=== PATIENT | female | born 1975 ===

== ENCOUNTER 2021-05-09 12:56 | Outpatient (CLI) | payer OTHER, SELFPAY ==
[2021-05-09] MEDS: Albuterol HFA 18 GM 200 PUFF INH IH (13:56)
[2021-05-09] MEDS: Inhaler, Assist Device 1 EACH MC (13:56)
--- NOTE | 2021-05-09 14:35 | W.PFT ---
Date of service: 05/09/21 Time of Service: 13:07 Pulmonary Function Test Result Requesting Provider Petey Smith Indications: [facility] disability Interpretation Spirometry: There is no airflow limitation. There is no significant bronchodilator response Impression Normal spirometry Clinical Correlation therefore is recommended.
== END 2021-05-09 12:57 | disposition home or self-care (01) ==
LOC: RT 05-12 12:57
PROVIDERS: Visit Provider Chiropractor
DX: Z02.71 Encounter for disability determination (principal)
CPT/HCPCS: 94060

== ENCOUNTER 2022-10-05 15:07 | Emergency (ER) | payer OTHER, SELFPAY ==
[2022-10-05 15:11] VITALS: BP 102/62; PULSE 78; RESP 20; TEMP 36.9; O2SAT 97
--- NOTE | 2022-10-05 15:40 | DI.RAD_ITS ---
Exam(s) XR FOREARM LT EXAM: XR FOREARM LT CLINICAL HISTORY: pain s/p fall. TECHNIQUE: 2D digital imaging was performed of the left forearm. Two views were obtained. AP and l ateral views were obtained. COMPARISON: No exams were available for comparison FINDINGS: BONES: There is a question of a lucency in the lateral aspect of the triquetral bone on the AP view o f the forearm. No other acute fracture or dislocation is seen. No bony destructive lesion is seen. Visualized portion of elbow and wrist joints are unremarkable. SOFT TISSUE: Normal. IMPRESSION: 1. Question of a lucency in the lateral aspect of the triquetral bone on the AP view of the forearm. Please correlate with patient's site of pain as a nondisplaced fracture cannot be excluded in this a carlton. A dedicated wrist x-ray should be considered for further evaluation. 2. No acute fracture or dislocation seen in the forearm. 3. Findings were discussed with Dr. Obrien at 8:49 a.m. on 10/06/2022. DATA REPOSITORY: RADIATION DOSE DELIVERED:
--- NOTE | 2022-10-05 15:40 | DI.RAD_ITS ---
Exam(s) XR FEMUR LT EXAM: XR FEMUR LT CLINICAL HISTORY: pain s/p fall. TECHNIQUE: 2D digital imaging was performed of the left femur. Four images were obtained. AP and lat eral views were obtained. COMPARISON: No exams were available for comparison FINDINGS: BONES: No acute fracture is present. No bony destructive lesion is seen. Visualized portion of knee a nd hip joints are unremarkable. SOFT TISSUE: Normal. IMPRESSION: Unremarkable radiographs of the left femur. DATA REPOSITORY: RADIATION DOSE DELIVERED:
--- NOTE | 2022-10-05 15:40 | DI.RAD_ITS ---
Exam(s) XR SHOULDER LT COMPLETE 2+V EXAM: XR SHOULDER LT COMPLETE 2+V CLINICAL HISTORY: pain s/p fall. TECHNIQUE: 2D digital imaging was performed of the left shoulder. Five images were obtained. AP, G rashey, Y-view and axillary views were obtained. COMPARISON: No exams were available for comparison FINDINGS: BONES: No acute fracture is present. No bony destructive lesion is seen. JOINTS: There is mild inferior subluxation of the humeral head relative to the glenoid. The acromioc lavicular joint is unremarkable. SOFT TISSUE: Normal. IMPRESSION: Mild inferior subluxation of the humeral head without anterior posterior subluxation. This may refle ct ligamentous injury, of uncertain chronicity. Please correlate clinically. DATA REPOSITORY: RADIATION DOSE DELIVERED:
--- NOTE | 2022-10-05 15:40 | DI.RAD_ITS ---
Exam(s) XR HUMERUS LT EXAM: XR HUMERUS LT CLINICAL HISTORY: pain. TECHNIQUE: 2D digital imaging was performed of the left humerus. Two images were obtained. AP and lateral views were obtained. COMPARISON: No exams were available for comparison FINDINGS: BONES: No acute fracture is present. No bony destructive lesion is seen. Visualized portion of elbow and shoulder joints are unremarkable. SOFT TISSUE: Normal. IMPRESSION: Unremarkable radiographs of the left humerus. DATA REPOSITORY: RADIATION DOSE DELIVERED:
--- NOTE | 2022-10-05 15:40 | DI.RAD_ITS ---
Exam(s) XR CHEST 2V PA LATERAL EXAM: XR CHEST 2V PA LATERAL CLINICAL HISTORY: left sided pain s/p fall TECHNIQUE: 2D digital imaging was performed of the chest. Two images were obtained. PA and lateral views were obtained. COMPARISON: No exams were available for comparison FINDINGS: MEDIASTINUM: Normal. HEART: Normal. PULMONARY VASCULATURE: Normal. LUNGS: Clear. PLEURAL SPACE: No pleural effusion or pneumothorax. BONE:Within normal limits for the patient's age. OTHER FINDINGS:Normal. IMPRESSION: No acute pulmonary findings. DATA REPOSITORY: RADIATION DOSE DELIVERED:
--- NOTE | 2022-10-05 15:49 | ED.GENADUL_ITS ---
Discharge Plan Disposition Patient Disposition: Home Condition: Stable Discharge Details Chief Complaint: Orthopedic Clinical Impression: Contusion of left chest wall, Contusion of arm, left, Contusion of left shoulder, Contusion of left leg Primary Care Provider: GREG DAMON ED Provider: Pola Rodriguez Home Meds and New Rx's Prescriptions: No Action No Known Home Meds Discharge Instructions Instructions: Contusion in Adults (ED) Additional Instructions: if pain continues in a week follow up with your primary care provider if you feel more ill, have severe worsening pain or new symptoms such as severe abdominal pain return to the emergency department Medical Decision Making 47 yo female with hx of fibromyalgia comes in with left arm, leg and left sided chest tenderness after a fall Wednesday evening. She says Wednesday she was walking upstairs, tripped and hit her left side on the wall. Denies loc or other trauma, since has had pain in the left arm, leg and left sided of her chest. She has no headaches, n/v, abdominal pain, back pain. She arrives ambulatory caox4 in no distress. No signs of trauma to the head, perrl, no midline c/t/l spine tenderness. She has tenderness to the left anterior shoulder, left mid humerus, none to the elbow, and left forearm, no wrist or hand tenderness, full rom of the hand, wrist, elbow and shoulder, intact pulses and sensation. Has no visible or palpable deformity of the chest but is tender in the mid axillary line on the left over ribs 4-5. No abdominal tenderness. Her left mid femur is tender without visible or palpable deformity otherwise no tendernress elsewhere in the leg, full rom of the ankle, knee and hip. Suspect sprains and contusions, will obtain xrays of the left shoulder, humerus, forearm, chest xray, and left femur xray and reassess. patient stable, imaging on my reads shows no acute findings. Pt feels well enough for d/c and doesn't want to wait for vrad reads, will call her if any abnormal acute results. Advised to f/u with pcp, return precautions given Differential Diagnosis Differential Diagnosis: fracture contusion sprain Imaging Data Radiologic Study: Attestation: I personally reviewed and interpreted this imaging study as follows: Imaging: X-Ray My impression: no acute findings cxr Radiologic Study #2: Attestation: I personally reviewed and interpreted this imaging study as follows: Imaging: X-Ray My impression: no acute findings shoulder xray Radiologic Study #3: Attestation: I personally reviewed and interpreted this imaging study as follows: Imaging: X-Ray My impression: no acute findings forearm xray Radiologic Study #4: Attestation: I personally reviewed and interpreted this imaging study as follows: Imaging: X-Ray My impression: no acute findings on humerus xray Radiologic Study #5: Attestation: I personally reviewed and interpreted this imaging study as follows: Imaging: X-Ray My impression: no acute findings left femur xray HPI General Mode of arrival: ambulatory . Date/Time Provider Initiated Documentation: 10/05/22 15:15 . Limitations to Documentation: no limitations . Information obtained by: patient . History of Present Illness 47 year old F presents to the emergency department with the chief complaint of left arm pain, described as moderate, Quality is described as aching, and it has been constant. No relieving factors improve symptom(s), No exacerbating factors reported . Patient notes denies shortness of breath. Patient did receive the following treatments prior to arrival, none Related Data Home Medications Medication Instructions Recorded Confirmed Unknown [No Known Home Meds] 10/05/22 10/05/22 Allergies Allergy/AdvReac Type Severity Reaction Status Date / Time codeine Allergy Anaphylaxis Unverified 10/05/22 15:17 epinephrine Allergy Other (See Unverified 10/05/22 15:16 Comment) lidocaine Allergy Other (See Unverified 10/05/22 15:17 Comment) General Stated Complaint: Orthopedic MARIANELA: 3 Review of Systems All systems reviewed & are unremarkable except as noted in HPI and below Constitutional Constitutional: Denies chills, Denies fever(s) and Denies weakness Cardiovascular Cardiovascular: Denies dyspnea Respiratory Respiratory: Denies cough and Denies dyspnea Gastrointestinal Gastrointestinal: Denies abdominal pain, Denies nausea and Denies vomiting Musculoskeletal Musculoskeletal: Denies joint swelling Neurologic Neurologic: Denies weakness PFSH All Active Problems (Updated 10/05/22 @ 18:33 by Pola Rodriguez MD) Contusion of left chest wall (Acute) Contusion of arm, left (Acute) Contusion of left shoulder (Acute) Contusion of left leg (Acute) Social History Smoking/Tobacco Use Status: Never Smoking risk assessment performed?: Yes Alcohol Intake: never Do you feel safe at home: Yes Do you feel safe in your relationship?: Yes Exam Const General: no acute distress Orientation: alert HENMT Head: normal to inspection Ears: external ears normal General nose exam: external nose normal Mouth: moist mucous membranes Eyes General: appearance normal, both eyes and all related structures Neck Neck: normal visual inspection and nontender Chest Chest: normal inspection of the chest Resp Effort & Inspection: normal respiratory effort and able to speak in complete sentences Cardio Rate: regular rate GI Palpation: soft and nontender Skin General skin exam: no rashes or lesions noted Neuro General: patient alert and patient oriented x3 Extrem General: normal to inspection Psych Mental Status: mental status grossly normal Course Vital Signs Vital signs: Vital Signs Temperature 36.9 C 10/05/22 15:11 Pulse 78 10/05/22 15:11 Respiratory Rate 20 10/05/22 15:11 Blood Pressure 102/62 10/05/22 15:11 Pulse Oximetry 97 10/05/22 15:11 Temperature 36.9 C 10/05/22 15:11 Temperature Source Oral 10/05/22 15:11 Pulse 78 10/05/22 15:11 Respiratory Rate 20 10/05/22 15:11 Respiratory Effort Normal, Non-Labored 10/05/22 15:19 Blood Pressure 102/62 10/05/22 15:11 Blood Pressure Position Sitting 10/05/22 15:11 Pulse Oximetry 97 10/05/22 15:11 Oxygen Delivery Method Room Air 10/05/22 15:11 Oxygen Flow Rate 0 10/05/22 15:11 Pain Level 6 10/05/22 15:11
[2022-10-05] MEDS: Ibuprofen 600 MG TAB PO (16:00)
--- NOTE | 2022-10-05 18:48 | DI.VRAD_ITS ---
PROCEDURE INFORMATION: Exam: XR Left Forearm Exam date and time: 10/05/2022 4:59 PM Age: 47 years old Clinical indication: Lower or forearm; Left; Patient HX: Pain S/P fall TECHNIQUE: Imaging protocol: Radiologic exam of the left forearm. Views: 2 views. COMPARISON: No relevant prior studies available. FINDINGS: Bones/joints: There are no acute displaced fractures or subluxations. The joint spaces are maintained without degenerative changes. Osseous mineralization is normal. There are no inflammatory osseous erosive changes. No focal osseous lesions are identified. Soft tissues: Normal. IMPRESSION: No acute displaced fractures or subluxations identified. Dictated and Authenticated by: Srikanth Worthy MD. Ordering:ROSALIO Escalona MD
--- NOTE | 2022-10-05 18:49 | DI.VRAD_ITS ---
PROCEDURE INFORMATION: Exam: XR Left Femur Exam date and time: 10/05/2022 5:21 PM Age: 47 years old Clinical indication: Lower leg and thigh; Left; Patient HX: Pain s/p/fall TECHNIQUE: Imaging protocol: Radiologic exam of the left femur. Views: 2 views. COMPARISON: No relevant prior studies available. FINDINGS: Bones/joints: Osseous mineralization is normal. There are no inflammatory osseous erosive changes. The joint spaces are maintained without degenerative changes. The left femoral head demonstrates normal contour and density. There are no acute displaced fractures or subluxations. No focal osseous lesions are identified. Soft tissues: Unremarkable. IMPRESSION: No acute displaced fractures or subluxations identified. Dictated and Authenticated by: Srikanth Worthy MD. Ordering:ROSALIO Escalona MD
--- NOTE | 2022-10-05 18:49 | DI.VRAD_ITS ---
PROCEDURE INFORMATION: Exam: XR Left Humerus Exam date and time: 10/05/2022 5:08 PM Age: 47 years old Clinical indication: Lower or forearm and upper arm; Left; Patient HX: Pain S/P fall TECHNIQUE: Imaging protocol: Radiologic exam of the left humerus. Views: 2 or more views. COMPARISON: CR XR CHEST 2V PA LATERAL 10/05/2022 5:06 PM FINDINGS: Bones/joints: There are no acute displaced fractures or subluxations. The joint spaces are maintained without degenerative changes. Osseous mineralization is normal. There are no inflammatory osseous erosive changes. Soft tissues: Normal. IMPRESSION: No acute displaced fractures or subluxations identified. Dictated and Authenticated by: Srikanth Worthy MD. Ordering:ROSALIO Escalona MD
--- NOTE | 2022-10-05 18:50 | DI.VRAD_ITS ---
PROCEDURE INFORMATION: Exam: XR Chest Exam date and time: 10/05/2022 5:06 PM Age: 47 years old Clinical indication: Other: Pain S/P fall TECHNIQUE: Imaging protocol: Radiologic exam of the chest. Views: 2 views. COMPARISON: No relevant prior studies available. FINDINGS: Lungs: The lungs are clear. There is no pulmonary vascular congestion. Pleural spaces: There are no pleural effusions present. There is no evidence of pneumothorax. Heart/Mediastinum: The cardiomediastinal silhouette is within normal limits. Bones/joints: There is mild to moderate S-shaped lower thoracic and lumbar scoliosis, only partially imaged on this exam. No acute fractures are identified. IMPRESSION: No active cardiopulmonary disease identified. Dictated and Authenticated by: Srikanth Worthy MD. Ordering:ROSALIO Escalona MD
--- NOTE | 2022-10-05 18:50 | DI.VRAD_ITS ---
PROCEDURE INFORMATION: Exam: XR Left Shoulder Exam date and time: 10/05/2022 5:11 PM Age: 47 years old Clinical indication: Shoulder; Left; Patient HX: Pain S/P fall TECHNIQUE: Imaging protocol: Radiologic exam of the left shoulder. Views: 2 or more views. COMPARISON: CR XR HUMERUS LT 10/05/2022 5:08 PM FINDINGS: Bones/joints: There is mild inferior subluxation of the humeral head relative to the glenoid. No anterior or posterior subluxation of the glenohumeral joint is identified. No acute displaced fractures are identified. The joint spaces are maintained without degenerative changes. Osseous mineralization is normal. There are no inflammatory osseous erosive changes. No focal osseous lesions are identified. Soft tissues: Normal. IMPRESSION: 1. No acute fractures identified. 2. Mild inferior subluxation of the humeral head without anterior or posterior subluxation at the glenohumeral joint. Findings could reflect history of ligamentous injury, of uncertain chronicity. Recommend clinical correlation. Dictated and Authenticated by: Srikanth Worthy MD. Ordering:ROSALIO Escalona MD
== END 2022-10-05 18:37 | disposition home or self-care (01) ==
PROVIDERS: Emergency Provider Emergency Medicine; PCP Internal Medicine
DX: S20.213A Contusion of bilateral front wall of thorax, initial encounter; S40.012A Contusion of left shoulder, initial encounter; S40.022A Contusion of left upper arm, initial encounter; S80.12XA Contusion of left lower leg, initial encounter; W10.9XXA Fall (on) (from) unspecified stairs and steps, initial encounter
CPT/HCPCS: 73552; 99284; 71046; 73030; 73060; 73090

== ENCOUNTER 2022-12-30 13:04 | Emergency (ER) | payer BC, SELFPAY ==
[2022-12-30 13:09] VITALS: BP 115/65; PULSE 74; RESP 20; O2SAT 99
--- NOTE | 2022-12-30 13:40 | NUR.NOTE ---
Nursing Note: Pt refusing urine test ordered prior to xray, states, I had a hysterectomy. There's no chance. CHELSEA Freire notified and advised to go ahead w/ xray.
--- NOTE | 2022-12-30 14:00 | DI.RAD_ITS ---
Exam(s) XR KNEE RT 4V AP,LAT,JESSY,PAT EXAM: XR KNEE RT 4V AP,LAT,JESSY,PAT CLINICAL HISTORY: Fall,. TECHNIQUE: 2D digital imaging was performed. Three views. COMPARISON: No exams were available for comparison FINDINGS: BONES: No acute fracture is present. No bony destructive lesion is seen. JOINTS: The knee is normally aligned. No joint effusion is seen. SOFT TISSUE: Normal. IMPRESSION: Unremarkable radiographs of the right knee. DATA REPOSITORY: RADIATION DOSE DELIVERED:
--- NOTE | 2022-12-30 14:28 | W.ED.GENAD ---
Discharge Plan Disposition Patient Disposition: Home Discharge Details Clinical Impression: Sprain of unspecified site of right knee, initial encounter Primary Care Provider: GREG DAMON ED Provider: Mouna Chen Home Meds and New Rx's Prescriptions: No Action Vitamin C 100 mg Tablet 100 mg PO DAILY vitamin B complex Capsule 1 cap PO DAILY cholecalciferol (vitamin D3) [Vitamin D3] 10 mcg (400 unit) Capsule 10 mcg PO DAILY Discharge Instructions Instructions: Knee Sprain (ED) Additional Instructions: Wear the knee brace as needed for comfort. Rest, ice, compression, elevation when sitting or lying down. Please follow-up with orthopedics for further evaluation and discussion. X-rays today show no acute abnormality. Please take Tylenol or Ibuprofen with food every 4-6 hours as needed for pain and swelling. Follow up with primary care provider in 3-5 days if needed. Return to ED sooner if any worsening or concerns. Increase oral fluids. Referrals: Jaxson Hidalgo MD [ [facility] STAFF PHYSICIAN] - 1 week Discharge Data Discharge Date/Time-TO BE ENTERED AT DEPARTURE: 12/30/22 15:02 Medical Decision Making 47-year-old female presents to the ER with a chief complaint of right knee pain status post a trip and fall approximately 3 weeks ago when she landed onto her knee. She did have an abrasion which she reports she thought was infected. It is healing does have a scab and some surrounding soft tissue swelling. She reports with kneeling and certain movements she does have some excruciating sharp pain that radiates down into her ankle. She does have lateral joint tenderness with palpation and anterior tibia tenderness with palpation. X-ray negative for anything acute see radiology report below, will place patient in hinged knee brace and given referral for orthopedics for any continued pain. Patient verbalized understanding is in agreement with the plan. This text was generated using [employer] dictation system, please disregard any oddities of phrase or misspellings. Imaging Data Radiologic Study: Imaging: X-Ray Radiologist's impression: EXAM: XR KNEE RT 4V AP,LAT,JESSY,PAT CLINICAL HISTORY: Fall,. TECHNIQUE: 2D digital imaging was performed. Three views. COMPARISON: No exams were available for comparison FINDINGS: BONES: No acute fracture is present. No bony destructive lesion is seen. JOINTS: The knee is normally aligned. No joint effusion is seen. SOFT TISSUE: Normal. IMPRESSION: Unremarkable radiographs of the right knee. HPI General Mode of arrival: ambulatory. Date/Time Provider Initiated Documentation: 12/30/22 13:30. Limitations to Documentation: no limitations. Information obtained by: patient, RN notes reviewed and old records reviewed. HPI Narrative: 47-year-old female presents to the ER with a chief complaint of right knee pain status post a trip and fall approximately 3 weeks ago when she landed onto her knee. She did have an abrasion which she reports she thought was infected. It is healing does have a scab and some surrounding soft tissue swelling. She reports with kneeling and certain movements she does have some excruciating sharp pain that radiates down into her ankle. She does have lateral joint tenderness with palpation and anterior tibia tenderness with palpation. Related Data Home Medications Medication Instructions Recorded Confirmed ascorbic acid (vitamin C) 100 mg 100 mg PO DAILY 12/30/22 12/30/22 tablet (Vitamin C) cholecalciferol (vitamin D3) 10 10 mcg PO DAILY 12/30/22 12/30/22 mcg (400 unit) capsule (Vitamin D3) vitamin B complex 1 cap PO DAILY 12/30/22 12/30/22 Allergies Allergy/AdvReac Type Severity Reaction Status Date / Time codeine Allergy Anaphylaxis Unverified 12/30/22 13:11 epinephrine Allergy Other (See Unverified 12/30/22 13:11 Comment) lidocaine Allergy Other (See Unverified 12/30/22 13:11 Comment) General Stated Complaint: Orthopedic MARIANELA: 4 PFSH All Active Problems (Updated 12/30/22 @ 14:33 by Mouna Chen NP) Sprain of unspecified site of right knee, initial encounter (Acute) Social History Smoking/Tobacco Use Status: Never Smoking risk assessment performed?: Yes Alcohol Intake: never Do you feel safe at home: Yes Do you feel safe in your relationship?: Yes Exam Extrem Right lower extremity: knee Details: tenderness Location: of the lateral joint line and of the proximal tibia Details: medially and abrasion (Healing with Scab) Knee images: 1. Swelling 2. Abrasion with a scab which is healing Course Vital Signs Vital signs: Vital Signs Pulse 74 12/30/22 13:09 Respiratory Rate 20 12/30/22 13:09 Blood Pressure 115/65 12/30/22 13:09 Pulse Oximetry 99 08/09/23 13:09 Pulse 74 12/30/22 13:09 Respiratory Rate 20 12/30/22 13:09 Respiratory Effort Normal, Non-Labored 12/30/22 13:16 Blood Pressure 115/65 12/30/22 13:09 Blood Pressure Position Sitting 12/30/22 13:09 Pulse Oximetry 99 12/30/22 13:09 Oxygen Delivery Method Room Air 12/30/22 13:09 Oxygen Flow Rate 0 12/30/22 13:09 Pain Level 6 12/30/22 13:16 Comment last dose of ibuprofen 2 days ago 12/30/22 13:09
[2022-12-30 14:58] VITALS: BP 100/68; PULSE 62; RESP 16; O2SAT 97
== END 2022-12-30 15:02 | disposition home or self-care (01) ==
PROVIDERS: Emergency Provider Registered Nurse Emergency; PCP Internal Medicine
DX: S83.91XA Sprain of unspecified site of right knee, initial encounter (principal); W01.0XXA Fall on same level from slipping, tripping and stumbling without subsequent striking against object, initial encounter
CPT/HCPCS: 99283; 73564

== ENCOUNTER 2024-12-01 12:04 | Outpatient (REF) | payer BC, SELFPAY ==
[2024-12-01 15:14] LABS: Abs Immature Grans 0.02 10^3/uL (0.0-0.06); HCT 45.0 % (36.0-46.0); HGB 14.9 g/dL (11.2-15.7); Immature Grans % 0.3 %; MCH 31.8 pg (27.0-33.0); MCHC 33.1 % (32.0-36.0); MCV 96 fL (80-95); MPV 10.9 fL (8.0-11.0); Platelet Count 284 10^3/uL (130-400); RBC 4.68 10^6/uL (3.93-5.22); RDW 12.9 % (11.7-14.6); RDW-SD 45.8 fL; WBC 7.38 10^3/uL (4.4-10.8)
[2024-12-01 16:08] LABS: ALT 31 U/L (14-59); AST 12 U/L (15-37); Albumin 4.1 g/dL (3.4-5.0); Alkaline Phosphatase 99 U/L (46-116); Anion Gap 9.1 mmol/L (3-11); BUN 13 mg/dL (7-18); Bilirubin, Total 0.4 mg/dL (0.2-1.0); CO2 27.9 mmol/L (21.0-32.0); Calcium 9.2 mg/dL (8.5-10.1); Calculated LDL 108 mg/dL (<100); Chloride 104 mmol/L (98-107); Cholesterol 188 mg/dL (<200); Estimated GFR 109.28 (mL/min/1.73m2); Glucose 100 mg/dL (74-106); HDL Cholesterol 70 mg/dL (>or=50); Potassium 4.5 mmol/L (3.5-5.1); Sodium 141 mmol/L (136-145); TSH 1.09 uIU/mL (0.36-3.74); Total Protein 7.2 g/dL (6.4-8.2); Triglyceride 50 mg/dL (<150)
== END 2024-12-01 12:05 | disposition home or self-care (01) ==
LOC: NCHCN 12:04
PROVIDERS: PCP Internal Medicine; Visit Provider Physician Assistant
DX: F41.1 Generalized anxiety disorder (principal); Z13.220 Encounter for screening for lipoid disorders
CPT/HCPCS: 80053; 80061; 84443; 85025

== ENCOUNTER 2024-12-07 16:28 | Outpatient (REF) | payer BC, SELFPAY | END 2024-12-07 16:29 | disposition home or self-care (01) | LOC: NCHCN 16:28 | PROVIDERS: PCP Internal Medicine; Visit Provider Physician Assistant | DX: R39.9 Unspecified symptoms and signs involving the genitourinary system (principal) | CPT/HCPCS: 87077; 87086; 87186 ==